=== PATIENT | male | born 1970 | race Caucasian/White ===

== ENCOUNTER 2016-10-04 18:18 | Inpatient (IN) | payer BC ==
[~2016-10-04] VITALS: Ht 172.7 cm; Wt 121.0 kg
[2016-10-04] MEDS ORDERED: ONDANSETRON 2MG/ML, 2ML ONE (18:55)
[2016-10-04 19:00] LABS: HEMATOCRIT 49.2 % (39.2-51.8); WHITE BLOOD COUNT 12.8 x10^3/uL (3.4-10)
[2016-10-04] MEDS ORDERED: SODIUM CHLORIDE 0.9% 1,000ML IVBOLUS ONE (19:00)
[2016-10-04] MEDS ORDERED: SODIUM CHLORIDE FLUSH 10ML SYR IVF ONE (19:00)
[2016-10-04 19:11] LABS: BLOOD UREA NITROGEN 25 mg/dL (7-18)
[2016-10-04 19:14] LABS: ASPARTATE AMINO TRANSFERASE 24 U/L (15-37)
[2016-10-04] MEDS ORDERED: ONDANSETRON 2MG/ML, 2ML IVPush ONE (19:30)
[2016-10-04] MEDS ORDERED: MECLIZINE CHEWABLE 25 MG TAB ONE (21:55)
[2016-10-04] MEDS ORDERED: MECLIZINE CHEWABLE 25 MG TAB PO ONE (22:00)
[2016-10-04] MEDS ORDERED: DIAZEPAM 5 MG TABLET ONE (22:42)
[2016-10-04] MEDS ORDERED: DIAZEPAM 5 MG TABLET PO ONE (23:00)
[2016-10-05] MEDS ORDERED: ACETAMINOPHEN 325 MG TABLET PO PRN (00:30)
[2016-10-05] MEDS: LORATADINE/PSE 5/120MG TAB.ER.12H PO SCH ×3 (00:30→21:41)
[2016-10-05] MEDS ORDERED: ONDANSETRON 2MG/ML, 2ML IVPush PRN (00:30)
[2016-10-05] MEDS ORDERED: BISACODYL 10 MG SUPP PR PRN (00:30)
[2016-10-05] MEDS ORDERED: DIAZEPAM 5 MG TABLET PO PRN (00:30)
[2016-10-05] MEDS ORDERED: POLYETHYLENE GLYCOL 17 GM PACKET PO PRN (00:30)
[2016-10-05] MEDS: HEPARIN 5,000 UNITS/ML, 1ML SQ SCH ×4 (01:39→21:41)
[2016-10-05 02:08] VITALS: BP 131/72
[2016-10-05 02:34] VITALS: BP 123/71
[2016-10-05 08:40] VITALS: BP 112/73
[2016-10-05] MEDS: AMOXICILLIN/CLAV 875-125MG TABLET PO SCH ×2 (09:23→21:41)
[2016-10-05] MEDS: SODIUM CHLORIDE FLUSH 10ML SYR IVF SCH ×2 (09:23→21:41)
[2016-10-05] MEDS: SENNA/DOCUSATE TABLET PO SCH (09:23)
[2016-10-05] MEDS: MECLIZINE CHEWABLE 25 MG TAB PO PRN (09:24)
[2016-10-05 14:06] VITALS: BP 111/73
[2016-10-05 20:00] VITALS: BP 146/68
[2016-10-06 02:00] VITALS: BP 135/72
[2016-10-06 05:42] LABS: HEMATOCRIT 46.2 % (39.2-51.8); HEMOGLOBIN 15.1 g/dL (13.7-18.0); WHITE BLOOD COUNT 11.7 x10^3/uL (3.4-10)
[2016-10-06 05:59] LABS: BLOOD UREA NITROGEN 23 mg/dL (7-18)
[2016-10-06 06:46] VITALS: BP 132/76
[2016-10-06] MEDS: SENNA/DOCUSATE TABLET PO SCH (07:28)
[2016-10-06] MEDS: MECLIZINE CHEWABLE 25 MG TAB PO PRN (07:28)
[2016-10-06] MEDS: AMOXICILLIN/CLAV 875-125MG TABLET PO SCH (07:28)
[2016-10-06] MEDS: HEPARIN 5,000 UNITS/ML, 1ML SQ SCH (07:29)
[2016-10-06] MEDS: SODIUM CHLORIDE FLUSH 10ML SYR IVF SCH (07:31)
[2016-10-06] MEDS: LORATADINE/PSE 5/120MG TAB.ER.12H PO SCH (12:05)
[2016-10-06] MEDS ORDERED: LORA-170 PO (13:01)
[2016-10-06] MEDS ORDERED: PRED10TA PO (13:01)
[2016-10-06] MEDS ORDERED: AMOX1TAB12 PO (13:01)
[2016-10-06] MEDS ORDERED: MECL-85 PO (13:01)
[2016-10-06 14:21] VITALS: BP 155/95
== END 2016-10-06 14:40 | disposition home or self-care (01) | DRG 149 ==
LOC: ED 23:56 → 4NOR 10-05 00:07
PROVIDERS: ADMIT Internal Medicine; ATTEND Internal Medicine
DX: R42 Dizziness and giddiness (principal); Z68.41 Body mass index [BMI] 40.0-44.9, adult; I10 Essential (primary) hypertension; H83.02 Labyrinthitis, left ear; E66.9 Obesity, unspecified; J01.00 Acute maxillary sinusitis, unspecified; H65.02 Acute serous otitis media, left ear; D72.829 Elevated white blood cell count, unspecified; Z85.828 Personal history of other malignant neoplasm of skin
CPT/HCPCS: 36415; 70450; 70551; 80048; 80053; 83735; 85025; 93005; J1644; J2405; J7030; J7512